=== PATIENT | male | born 1965 | race Caucasian/White ===

== ENCOUNTER → 2017-02-12 | Outpatient (CLI) | payer BC ==
[~2017-02-12] VITALS: Ht 172.7 cm; Wt 97.0 kg
[~2017-02-12] MED LIST: ASPI81TA28 PO; OMEG10007 PO; [UNRECOGNIZED DRUG - CODE] PO
[2017-02-12 14:31] VITALS: BP 131/86; PULSE 93; Ht 172.7 cm; Wt 97.0 kg
== END | disposition home or self-care (01) ==
LOC: C.NEUR 13:29
PROVIDERS: ATTEND Internal Medicine Pulmonary Disease
DX: R06.83 Snoring (principal); R53.83 Other fatigue; R06.81 Apnea, not elsewhere classified; I10 Essential (primary) hypertension; D86.3 Sarcoidosis of skin